=== PATIENT | female | born 1950 | race American Indian/Alaskan Native ===

== ENCOUNTER 2017-03-09 14:48 | Emergency (ER) | payer OTHER ==
[2017-03-09 14:49] VITALS: BMI 26.6
--- NOTE | 2017-03-09 16:31 | ED PDOC ---
"Arrival/HPI - General Time Seen by Provider: 03/09/17 16:30 Historian: Patient - History of Present Illness Narrative History of Present Illness (Text): 03/09/17 16:30 66 y/o female, pmh including htn/hyperlipidemia/dm, nkda, c/o generalized sided chest pain and fatigue started last night around 11pm. Pt. stated that she has sudden onset of the lt. sided chest pain started last night, aching pain, admits fatigue and tired, no night sweat, no rash, no numbness or tingling, no palpitation, no rash, no numbness or tingling, no night sweat, no other medical or psychological complaints. Past Medical History - Provider Review Nursing Documentation Reviewed: Yes - Tetanus Immunization Tetanus Immunization: Unknown - Cardiac Hx Hypertension: Yes - Pulmonary Hx Asthma: Yes - Endocrine/Metabolic Hx Diabetes Mellitus Type 2: Yes - Hematological/Oncological Hx Anemia: Yes - Psychiatric Hx Anxiety: Yes Hx Substance Use: No - Surgical History Other/Comment: Bladder lift 06/14 - Suicidal Assessment Feels Threatened In Home Enviroment: No Family/Social History - Physician Review Nursing Documentation Reviewed: Yes Family/Social History: Unknown Family HX Smoking Status: Never Smoked Hx Alcohol Use: Yes Hx Substance Use: No Hx Substance Use Treatment: No Allergies/Home Meds Allergies/Adverse Reactions: Allergies No Known Allergies Allergy (Verified 01/14/15 18:29) Home Medications: Home Meds Medication Instructions Recorded Confirmed Glimepiride [amaRYL] 4 mg PO BID 09/29/16 03/09/17 Levocetirizine Dihydrochloride 5 mg PO DAILY 09/29/16 03/09/17 [Xyzal] Lisinopril [Zestril] 10 mg PO DAILY 09/29/16 03/09/17 Omeprazole 40 mg PO DAILY 09/29/16 03/09/17 Simvastatin 20 mg PO DAILY 09/29/16 03/09/17 Calcium Carbonate/Vitamin D3 03/09/17 [[place] 500-Vit D3 200 Tablet] Cod Liver Oil [Cod Liver Oil] 03/09/17 Diclofenac Sodium [Voltaren] 100 gm PO DAILY 03/09/17 03/09/17 Loperamide HCl [Loperamide HCl] 2 mg PO QID PRN 03/09/17 03/09/17 Omeprazole 40 mg PO DAILY 03/09/17 03/09/17 SITagliptin [Januvia] 100 mg PO DAILY 03/09/17 03/09/17 Review of Systems - Review of Systems Constitutional: Fatigue, Fevers Eyes: absent: Vision Changes, Photophobia ENT: absent: Hearing Changes Respiratory: Cough. absent: SOB Cardiovascular: Chest Pain Gastrointestinal: absent: Abdominal Pain, Nausea, Vomiting Skin: absent: Rash, Pruritis Neurological: absent: Headache, Dizziness Psychiatric: absent: Anxiety, Depression, Suicidal Ideation Physical Exam Vital Signs Reviewed: Yes Vital Signs Temp Pulse Resp BP Pulse Ox 03/09/17 19:05 89 17 140/70 96 03/09/17 17:58 91 H 16 116/55 L 96 03/09/17 17:38 102 F H 03/09/17 15:40 103 F H 98 H 16 168/67 H 98 Temperature: Febrile Blood Pressure: Hypertensive Pulse: Regular Respiratory Rate: Normal Appearance: Positive for: Well-Appearing, Non-Toxic, Comfortable Pain Distress: Mild Mental Status: Positive for: Alert and Oriented X 3 - Systems Exam Head: Present: Atraumatic, Normocephalic Pupils: Present: PERRL Extroacular Muscles: Present: EOMI Conjunctiva: Present: Normal Mouth: Present: Moist Mucous Membranes Neck: Present: Normal Range of Motion Respiratory/Chest: Present: Clear to Auscultation, Good Air Exchange. No: Respiratory Distress, Accessory Muscle Use, Wheezes, Decreased Breath Sounds, Rales, Retracting, Rhonchi, Tachypneic, Tender to Palpation Cardiovascular: Present: Regular Rate and Rhythm, Normal S1, S2. No: Murmurs Abdomen: Present: Normal Bowel Sounds. No: Tenderness, Distention, Peritoneal Signs Back: Present: Normal Inspection. No: CVA Tenderness Upper Extremity: Present: Normal Inspection. No: Cyanosis, Edema Lower Extremity: Present: Normal Inspection. No: Edema Neurological: Present: GCS=15, Speech Normal, Motor Func Grossly Intact, Gait Normal, Memory Normal Skin: Present: Warm, Dry, Normal Color. No: Rashes Psychiatric: Present: Alert, Oriented x 3, Normal Insight, Normal Concentration Medical Decision Making ED Course and Treatment: 03/09/17 16:53 -labs/ua/rapid flu -ekg -cxr -IVF/tylenol/aspirin 03/09/17 22:27 -EKG: NSR @ 90 BPM, no ST elevation or depression, no T wave inversion. -Chest xray show no active disease -Rapid flu is negative -Labs are non-significant with no elevation of wbc and lactic acid 1.4 -Ddimer is 258, CTA ordered with no PE but there is pneumonia noted, IV rocephine and azithromycin ordered, based on the curb 65 with no admission needed. -Negative troponin with 2 sets. -pt. is vitally stable, no admission indicated. -I discussed about the side effect of the levaquin including but not limited to prolong QT and possible achilles tendon ruptures, she verbalized understanding of the side effect and agreed on the levaquin. -Case discussed with Dr. Mcconnell including labs/radiology result and treatment , he suggest to discharge home with no admission indicated. -Pt. request pain medication for her headache for long hours, toradol IV ordered. -Discharge home with levaquin, promethazine dm, tylenol, stay hydrated, bed rest , follow up with your own pmd within 2 days, return to the ER for any new or worsening signs or symptoms. - Lab Interpretations Lab Results: 03/09/17 17:20 03/09/17 17:20 Lab Results 03/09/17 21:30: Lactate Dehydrogenase 440, Total Creatine Kinase 95, Troponin I < 0.01 03/09/17 18:43: D-Dimer, Quantitative 258 H 03/09/17 18:06: Urine Color Yellow, Urine Appearance Clear, Urine pH 7.5, Ur Specific [place] 1.015, Urine Protein Negative, Urine Glucose (UA) Negative, Urine Ketones Negative, Urine Blood Negative, Urine Nitrate Negative, Urine Bilirubin Negative, Urine Urobilinogen 0.2, Ur Leukocyte Esterase Negative 03/09/17 17:20: pO2 24 L, VBG pH 7.39, VBG pCO2 50.0, VBG HCO3 30.3 H, VBG Total CO2 31.8 H, VBG O2 Sat (Calc) 46.4, VBG Base Excess 4.2 H, VBG Potassium 4.3, Sodium 141.0, Chloride 108.0 H, Glucose 122 H, Lactate 1.4, FiO2 21.0, Venous Blood Potassium 4.3 03/09/17 17:20: Influenza Typ A,B (EIA) Negative for flu a/b 03/09/17 17:20: WBC 5.5, RBC 4.08, Hgb 12.6, Hct 37.8, MCV 92.6, MCH 30.9, MCHC 33.3, RDW 13.1, Plt Count 185, MPV 10.0, Gran % 82.3 H, Lymph % (Auto) 9.3 L, L[place] % (Auto) 7.1 H, Eos % (Auto) 1.3 L, Baso % (Auto) 0.0, Gran # 4.50, Lymph # 0.5 L, Loving # 0.4, Eos # 0.1, Baso # 0.00 03/09/17 17:20: Sodium 143, Chloride 105, Potassium 4.0, Carbon Dioxide 27, Anion Gap 15, BUN 15, Creatinine 1.1, Est GFR ( Amer) > 60, Est GFR (Non- Af Amer) 50, Random Glucose 120 H, Calcium 10.4, Magnesium 2.1, Total Bilirubin 0.4, AST 35, ALT 36, Alkaline Phosphatase 66, Lactate Dehydrogenase 447, Total Creatine Kinase 94, Troponin I < 0.01, NT-Pro-B Natriuret Pep 110, Total Protein 8.3, Albumin 4.6, Globulin 3.7, Albumin/Globulin Ratio 1.2 - RAD Interpretation Radiology Orders: 03/09/17 16:44 CHEST PORTABLE [RAD] Stat 03/09/17 19:15 ANGIO CHEST PE PROTOCOL [CT] Stat Chest xray: CTA chest: FINDINGS: Artifacts: Motion artifact degrades image quality. Heart, aorta and Pulmonary arteries: Heart size is at the upper limits of normal. There is trace fluid in pericardial recesses.There is no aneurysm or dissection. There is perfusion of the 3 arch vessels. There are no filling defects in the main pulmonary arteries. Bolus timing and motion limit evaluation of peripheral vessels. Lungs and pleural spaces: Trachea and main bronchi are patent.There is no pneumothorax. There are asymmetric groundglass opacities bilaterally. There is dependent atelectasis. There is patchy airspace disease at the right base. There are no effusions. MEGHAN NOLAND | Final Radiology Report CONFIDENTIALITY STATEMENT This report is intended only for use by the referring physician, and only in accordance with law. If you received this in error, call [phone]. Page 2 of 2 Mediastinum: Esophagus is unremarkable. There is a small hiatal hernia. There are shotty mediastinal and right hilar nodes. Thyroid: Thyroid is only partially imaged. Bones/joints: There are degenerative changes in the spine. There is mild superior endplate deformity T4 and T9. Soft tissues: unremarkable Upper abdomen: There are no acute abnormalities in the visualized portion of the abdomen. Pancreas is mildly atrophic. IMPRESSION: Limited by patient motion, no aneurysm, dissection or central pulmonary embolus; airspace disease at the right base atelectasis and/or infiltrate Additional findings as described above. Thank you for allowing us to participate in the care of your patient. 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 Yes Sleep Is patient sleeping during reassessment? No Presence of Pain Presence of Pain Yes Pain Scale Used Pain Scale Used Numeric Vitals Temperature (97.6 F-99.6 F) 102 F Temperature Source Oral Ceftriaxone Sodium (Rocephin 1 Gram Ivpb) 1 gm in 100 mls @ 200 mls/hr IVPB STAT STA PRN Reason: Protocol Stop: 03/09/17 21:23 Last Admin: 03/09/17 21:38 Dose: 200 mls/hr eMAR Start Stop Document 03/09/17 21:38 HI (Rec: 03/09/17 21:38 [email or web address]) Intravenous Solution Start Date 03/09/17 Start Time 21:38 Azithromycin (Zithromax 500mg In Ns) 500 mg in 250 mls @ 167 mls/hr IVPB STAT STA PRN Reason: Protocol Stop: 03/09/17 22:23 Last Admin: 03/09/17 22:20 Dose: 167 mls/hr eMAR Start Stop Document 03/09/17 22:20 HI (Rec: 03/09/17 22:20 [email or web address] Intravenous Solution Start Date 03/09/17 Start Time 22:20 Curb-65 Severity Score - CURB-65 Severity Score Confusion: No Bun >19mg/dl (>7mmol/L): No Respiratory Rate greater than/equal to 30: No Systolic BP <90 or Diastolic BP less than/equal 60mmHg: No Age >64: No Curb-65 Score: 0 Percentage 30-day mortality: 0.6% - PA / [employer]PER[employer] / Resident Statement /DO has reviewed & agrees with the documentation as recorded. Disposition/Present on Arrival - Present on Arrival Any Indicators Present on Arrival: No History of DVT/PE: No History of Uncontrolled Diabetes: No Urinary Catheter: No History of Decub. Ulcer: No History Surgical Site Infection Following: None - Disposition Have Diagnosis and Disposition been Completed?: Yes Diagnosis: Pneumonia Disposition: HOME/ ROUTINE Disposition Time: 22:28 Patient Plan: Discharge Patient Problems: Current Active Problems Problem Status Onset Pneumonia Acute Condition: IMPROVED Discharge Instructions (ExitCare): Bacterial Pneumonia (ED) Print Language: QATARI Additional Instructions: -Discharge home with levaquin, promethazine dm, tylenol, stay hydrated, bed rest , follow up with your own pmd within 2 days, return to the ER for any new or worsening signs or symptoms. Prescriptions: Acetaminophen [Tylenol 325mg tab] 2 tab PO QID PRN #30 tab PRN Reason: Other Levofloxacin [Levaquin] 750 mg PO DAILY #5 tablet Promethazine DM [Phenergan DM Syrup] 5 ml PO QID PRN #250 ml PRN Reason: other Referrals: Kapil Ingram MD [Primary Care Provider] - Follow up with primary Yuridia Beck MD [Staff Provider] - Follow up with primary Forms: WORK NOTE, [facility] ([place])"
[2017-03-09] MEDS ORDERED: Sodium Chloride 0.9% 1,000 ML IV SCH (16:45)
[2017-03-09 17:45] LABS: EOS # 0.1 (0.0-0.7); EOS % 1.3 % (1.5-5.0); GRAN # 4.5 (1.4-6.5); GRAN % 82.3 % (50.0-68.0); HEMOGLOBIN 12.6 g/dL (12.0-16.0); LYMPH # 0.5 (1.2-3.4); LYMPH % 9.3 % (22.0-35.0); MEAN CELL VOLUME 92.6 fl (80.0-105.0); MEAN CORPUSCULAR HEMOGLOBIN 30.9 pg (25.0-35.0); MEAN CORPUSCULAR HGB CONC 33.3 g/dl (31.0-37.0); MONO # 0.4 (0.1-0.6); MONO % 7.1 % (1.0-6.0); RBC 4.08 10^6/uL (3.5-6.1); RED CELL DISTRIBUTION WIDTH 13.1 % (11.5-14.5); WHITE BLOOD COUNT 5.5 10^3/ul (4.5-11.0)
[2017-03-09 17:52] LABS: VENOUS BLOOD GAS BASE EXCESS 4.2 mmol/L (0.0-2.0); VENOUS BLOOD GAS PO2 24 mm/Hg (30-55); VENOUS BLOOD PH 7.39 (7.32-7.43)
[2017-03-09 18:04] LABS: ALB/GLOB RATIO 1.2 (1.1-1.8); ALBUMIN 4.6 g/dL (3.0-4.8); ALT/SGPT 36 U/L (7-56); AST/SGOT 35 U/L (14-36); BLOOD UREA NITROGEN 15 mg/dL (7-21); CALCIUM 10.4 mg/dL (8.4-10.5); GFR AFRICAN-AMERICAN > 60; GFR NON-AFRICAN AMERICAN 50; MAGNESIUM 2.1 mg/dL (1.7-2.2)
[2017-03-09 18:12] LABS: PH,URINE 7.5 (4.7-8.0); URINE BILIRUBIN NEGATIVE (NEGATIVE); URINE BLOOD NEGATIVE (NEGATIVE); URINE GLUCOSE (UA) NEGATIVE (NEGATIVE); URINE LEUKOCYTE ESTERASE NEGATIVE Leu/uL (NEGATIVE); URINE NITRATE NEGATIVE (NEGATIVE); URINE PROTEIN NEGATIVE mg/dL (<30 mg/dL); URINE UROBILINOGEN 0.2 E.U./dL (<1 E.U./dL)
[2017-03-09 18:14] LABS: B-TYPE NATRIURETIC PEPTIDE 110 pg/mL (0-450); TROPONIN I < 0.01 ng/mL
[2017-03-09 18:19] LABS: URINE APPEARANCE CLEAR (CLEAR); URINE COLOR YELLOW (YELLOW)
[2017-03-09] MEDS ORDERED: Iohexol 350 MG/100 ML VIAL ONE (19:19)
--- NOTE | 2017-03-09 20:23 | CARD ---
APPROVED REPORT EKG Measurement Heart [id number] <Conclusion> Normal sinus rhythm Normal ECG
--- NOTE | 2017-03-09 20:41 | CT ---
EXAM: CT Angiography Chest With Intravenous Contrast EXAM DATE/TIME: 03/09/2017 7:15 PM CLINICAL HISTORY: 66 years old, female; Pain; Chest pain; On breathing; Additional info: Chest pain, elevated dimer TECHNIQUE: Axial computed tomographic angiography images of the chest with intravenous contrast using pulmonary embolism protocol. All CT scans at this facility use one or more dose reduction techniques, viz.: automated exposure control; ma/kV adjustment per patient size (including targeted exams where dose is matched to indication; i.e. head); or iterative reconstruction technique. MIP reconstructed images were created and reviewed. Coronal and sagittal reformatted images were created and reviewed. CONTRAST: 100 mL of omni administered intravenously. COMPARISON: There are no prior studies for comparison. FINDINGS: Artifacts: Motion artifact degrades image quality. Heart, aorta and Pulmonary arteries: Heart size is at the upper limits of normal. There is trace fluid in pericardial recesses.There is no aneurysm or dissection. There is perfusion of the 3 arch vessels. There are no filling defects in the main pulmonary arteries. Bolus timing and motion limit evaluation of peripheral vessels. Lungs and pleural spaces: Trachea and main bronchi are patent.There is no pneumothorax. There are asymmetric groundglass opacities bilaterally. There is dependent atelectasis. There is patchy airspace disease at the right base. There are no effusions. Mediastinum: Esophagus is unremarkable. There is a small hiatal hernia. There are shotty mediastinal and right hilar nodes. Thyroid: Thyroid is only partially imaged. Bones/joints: There are degenerative changes in the spine. There is mild superior endplate deformity T4 and T9. Soft tissues: unremarkable Upper abdomen: There are no acute abnormalities in the visualized portion of the abdomen. Pancreas is mildly atrophic. IMPRESSION: Limited by patient motion, no aneurysm, dissection or central pulmonary embolus; airspace disease at the right base atelectasis and/or infiltrate Additional findings as described above.
[2017-03-09] MEDS ORDERED: cefTRIAXone 1 gm 1 GM/100 ML BAG IVPB STA (20:54)
[2017-03-09] MEDS ORDERED: Azithromycin 500MG/NS 250ml 500 MG/250 ML BAG IVPB STA (20:54)
[2017-03-09 22:11] LABS: TROPONIN I < 0.01 ng/mL
[2017-03-09 22:42] VITALS: RESP 18
[2017-03-10 00:36] VITALS: BP 128/69; PULSE 86; TEMP 100.2; O2SAT 98
--- NOTE | 2017-03-10 09:30 | RAD ---
HISTORY: lt. sided chest pain COMPARISON: 08/11/2016 FINDINGS: LUNGS: No active pulmonary disease. PLEURA: No significant pleural effusion identified, no pneumothorax apparent. CARDIOVASCULAR: Normal. OSSEOUS STRUCTURES: No significant abnormalities. VISUALIZED UPPER ABDOMEN: Normal. OTHER FINDINGS: None. IMPRESSION: No active disease.
== END 2017-03-10 00:35 | disposition home or self-care (01) ==
LOC: ED 14:48
DX: J18.9 Pneumonia, unspecified organism (principal); I10 Essential (primary) hypertension; E78.5 Hyperlipidemia, unspecified; E11.9 Type 2 diabetes mellitus without complications
CPT/HCPCS: 71045; 71275; 80053; 81003; 82550; 82803; 82948; 83615; 83735; 83880; 84484; 85025; 85378; 87804; 93005; 96374; 99285; J0456; J0696; J1885; J7040; Q9967